=== PATIENT | female | born 1965 | race Caucasian/White ===

== ENCOUNTER → 2021-08-08 | Outpatient (CLI) | payer MEDICARE, MEDICAID | LOC: MHCPAIN 09:56 | DX: M47.817 Spondylosis without myelopathy or radiculopathy, lumbosacral region (principal); M53.3 Sacrococcygeal disorders, not elsewhere classified; M54.50 Low back pain, unspecified; G89.29 Other chronic pain | CPT/HCPCS: G0463 ==

== ENCOUNTER → 2021-08-16 | Outpatient (CLI) | payer MEDICARE, MEDICAID | LOC: MHCPAIN 08:04 | DX: M47.817 Spondylosis without myelopathy or radiculopathy, lumbosacral region (principal); M53.3 Sacrococcygeal disorders, not elsewhere classified; M54.50 Low back pain, unspecified ==

== ENCOUNTER → 2021-09-05 | Outpatient (CLI) | payer MEDICARE, MEDICAID | LOC: MHCPAIN 09:47 | DX: M47.817 Spondylosis without myelopathy or radiculopathy, lumbosacral region (principal); M54.50 Low back pain, unspecified; M53.3 Sacrococcygeal disorders, not elsewhere classified | CPT/HCPCS: G0463 ==

== ENCOUNTER → 2021-10-11 | Outpatient (CLI) | payer MEDICARE, MEDICAID | LOC: MHCPAIN 10-10 10:54 | DX: M47.817 Spondylosis without myelopathy or radiculopathy, lumbosacral region (principal); M54.50 Low back pain, unspecified; M53.3 Sacrococcygeal disorders, not elsewhere classified | CPT/HCPCS: G0463; J1100; J2250; J3010 ==

== ENCOUNTER → 2021-10-25 | Outpatient (CLI) | payer MEDICARE, MEDICAID | LOC: MHCPAIN 08:51 | DX: M47.817 Spondylosis without myelopathy or radiculopathy, lumbosacral region (principal); M54.50 Low back pain, unspecified; M53.3 Sacrococcygeal disorders, not elsewhere classified | CPT/HCPCS: J1100; J2250; J3010 ==

== ENCOUNTER → 2022-01-23 | Outpatient (CLI) | payer MEDICARE, MEDICAID | LOC: MHCPAIN 10:46 | DX: M47.896 Other spondylosis, lumbar region (principal); M53.3 Sacrococcygeal disorders, not elsewhere classified; M25.552 Pain in left hip | CPT/HCPCS: G0463 ==